=== PATIENT | female | born 1995 | race Caucasian/White ===

== ENCOUNTER 2017-05-18 22:37 | Emergency (ER) | payer OTHER ==
[2017-05-18] MEDS ORDERED: ALBUTEROL SULFATE 0.083% NEB 2.5 MG/3 ML AMPUL NEB ONE ×4 (22:44→23:09)
--- NOTE | 2017-05-18 23:29 | ER Document Report ---
ED Respiratory Problem - General Mode of Arrival: Ambulatory Information source: Patient - General Chief Complaint: Respiratory Distress Stated Complaint: ALLERGIC REACTION/DIFFICULTY BREATHING Time Seen by Provider: 05/18/17 23:21 Notes: Patient is a 21-year-old female that presents to the emergency department today secondary to shortness of breath related to bleach contact. Patient states that while at work today they "used bleach to mop the floor" and the fumes exacerbated her asthma. Patient states she has not used an inhaler in quite some time, stating she left it back in [place]. Patient states she tried a breathing treatment at 2200 at home which somewhat relieved her symptoms. Patient complains of subjective lip swelling and throat pain. Patient denies any nausea, vomiting, or diarrhea. (VIRGINIA KIM) - Related Data Allergies/Adverse Reactions: No Known Allergies Allergy (Unverified 05/18/17 23:18) Past Medical History - General Information source: Patient - Social History Smoking Status: Never Smoker Cigarette use (# per day): No Frequency of alcohol use: None Drug Abuse: None Lives with: Family Family History: Reviewed & Not Pertinent Patient has suicidal ideation: No Patient has homicidal ideation: No Pulmonary Medical History: Reports: Hx Asthma Surgical Hx: Negative Review of Systems - Review of Systems Constitutional: No symptoms reported EENT: See HPI, Throat pain, Other - subjective lip swelling Cardiovascular: No symptoms reported Respiratory: See HPI, Short of breath Gastrointestinal: denies: Diarrhea, Nausea, Vomiting Genitourinary: No symptoms reported Female Genitourinary: No symptoms reported Musculoskeletal: No symptoms reported Skin: No symptoms reported Hematologic/Lymphatic: No symptoms reported Neurological/Psychological: See HPI, Anxiety -: Yes All other systems reviewed and negative Physical Exam - Vital signs Vitals: Temp Pulse Resp BP Pulse Ox 97.8 F 125 H 26 H 130/79 H 98 05/18/17 22:51 05/18/17 22:51 05/18/17 22:51 05/18/17 22:51 05/18/17 22:51 - Notes Notes: PHYSICAL EXAM GENERAL: Alert, interacts well. No acute distress. HEAD: Normocephalic, atraumatic. EYES: Pupils equal, round, and reactive to light. Extraocular movements intact. ENT: Oral mucosa moist, tongue midline. Nares patent with clear rhinorrhea, no nasal septal hematoma, TM's intact. No posterior oropharynx exudate or erythema. NECK: Full range of motion. Supple. Trachea midline. LUNGS: Clear to auscultation bilaterally, no wheezes, rales, or rhonchi. No respiratory distress. HEART: Tachycardic, regular rhythm. No murmurs, gallops, or rubs. ABDOMEN: Soft, non-tender. Non-distended. Bowel sounds present in all 4 quadrants. No guarding, rigidity, or rebound. EXTREMITIES: Moves all 4 extremities spontaneously. No edema, radial and dorsalis pedis pulses 2/4 bilaterally. No cyanosis. NEUROLOGICAL: Alert and oriented x3. Normal speech. Fine tremor. PSYCH: Appears anxious. SKIN: Warm, dry, normal turgor. No rashes or lesions noted. (VIRGINIA KIM) Course - Re-evaluation Re-evalutation: 05/18/17 23:32 No evidence of allergic reaction, no respiratory distress, no hives, no swelling to the mucous membranes. Suspect patient had bronchospasm as a reaction to the bleach fumes. Patient states all symptoms have resolved after breathing treatments. Patient will be prescribed another inhaler, given some Benadryl and discharged to home. (ROXI LEVIN) - Vital Signs Vital signs: Temp Pulse Resp BP Pulse Ox 97.8 F 125 H 14 145/79 H 99 05/18/17 22:51 05/18/17 22:51 05/18/17 23:17 05/18/17 23:18 05/18/17 23:18 Discharge - Discharge Clinical Impression: Bronchospasm, acute Toxic effect of bleach Qualifiers: Encounter type: initial encounter Injury intent: accidental or unintentional Qualified Code(s): T54.91XA - Toxic effect of unspecified corrosive substance, accidental (unintentional), initial encounter Hypertension Qualifiers: Hypertension type: essential hypertension Qualified Code(s): I10 - Essential ( primary) hypertension Condition: Stable Disposition: HOME, SELF-CARE Additional Instructions: Please fill the prescription for the inhaler and take it with you to work. I do not see any signs of an allergic reaction today. I suspect your symptoms are coming from irritation to your lungs from the bleach fumes. Please return to the emergency department if you develop any difficulty breathing. Prescriptions: Albuterol Sulfate [Proair HFA Inhalation Aerosol 8.5 gm MDI] 2 puff IH Q4HP PRN #1 mdi PRN Reason: Forms: Elevated Blood Pressure, Return to Work Referrals: PABLO ALONZO MD [COMMUNITY BASED STAFF] - Follow up in 1 week Scribe Attestation: 05/19/17 06:23 I personally performed the services described in the documentation, reviewed and edited the documentation which was dictated to the scribe in my presence, and it accurately records my words and actions. (ROXI LEVIN) Scribe Documentation - Scribe Written by Juliette:: Juliette Sheehan, 05/19/2017 [id number] acting as scribe for :: Mey
[2017-05-18] MEDS ORDERED: DIPHENHYDRAMINE HCL 50 MG CAPSULE PO ONE (23:31)
[2017-05-18 23:37] VITALS: BP 145/79
== END 2017-05-18 23:43 | disposition home or self-care (01) ==
LOC: ER 22:37
DX: T54.91XA Toxic effect of unspecified corrosive substance, accidental (unintentional), initial encounter (principal); J98.01 Acute bronchospasm; I10 Essential (primary) hypertension; R06.00 Dyspnea, unspecified; R06.02 Shortness of breath; R22.0 Localized swelling, mass and lump, head; R07.0 Pain in throat
CPT/HCPCS: 94640; 99284